=== PATIENT | female | born 1935 | race Caucasian/White ===

== ENCOUNTER 2016-09-21 13:30 | Inpatient (IN) | payer MEDICARE, OTHER ==
[~2016-09-21] VITALS: Ht 160 cm; Wt 80.3 kg
[~2016-09-21 13:30] MED LIST: GLU500 PO; NORCO 7.5/3257.5 MG PO
--- NOTE | 2016-09-21 13:51 | NUR ---
PT BIB FAMILY C/C N/V/D PLACED ON MONITOR DR QUIGLEY AT BEDSIDE TO [facility]
--- NOTE | 2016-09-21 13:55 | NUR ---
RT AT BEDSIDE FOR ABG
--- NOTE | 2016-09-21 14:25 | NUR ---
PLEASE ENTER FULL NAMES OF RETAIL OFFICE ASSOCIATE/RN Patient data collected by (RETAIL OFFICE ASSOCIATE): Alexey DEVINE Assessment reviewed and completed by (RN): Clark RICKETTS
[2016-09-21 14:37] LABS: BASOPHIL % 0.1 % (0-2); PLATELET COUNT 275 x10^3mcL (130-400)
--- NOTE | 2016-09-21 14:39 | NUR ---
DR QUIGLEY MADE AWARE THAT PT HAS PAIN OF 7/10
--- NOTE | 2016-09-21 14:39 | NUR ---
PT MEDICATED PER MD ORDERS FOR PAIN.
[2016-09-21 14:44] LABS: CALCIUM 8.1 mg/dL (8.5-10.1); CARBON DIOXIDE 27.5 mmol/L (21-32); CHLORIDE SERUM 105 mmol/L (98-107); CREATININE SERUM 0.8 mg/dL (0.6-1.0); GLUCOSE SERUM 206 mg/dL (74-106); POTASSIUM SERUM 3.9 mmol/L (3.5-5.1); SODIUM SERUM 142 mmol/L (136-145)
[2016-09-21 14:57] LABS: ALBUMIN 3.4 g/dL (3.4-5.0); ALKALINE PHOSPHATASE 75 U/L (46-116); ALT/SGPT 16 U/L (14-59); AST/SGOT 14 U/L (15-37); BILIRUBIN TOTAL 0.6 mg/dL (0.20-1.00); C REACTIVE PROTEIN 2.3 mg/dL (<=0.9); TOTAL PROTEIN, SERUM 7.4 g/dL (6.4-8.2)
[2016-09-21 15:03] LABS: RED CELL DISTRIBUTION WIDTH 14.9 % (11.5-14.5)
[2016-09-21 15:16] LABS: CK-MB < 0.5 ng/mL (0-3.6); CREATINE KINASE 22 U/L (26-192)
[2016-09-21 15:19] LABS: T3 TOTAL 0.85 ng/mL
[2016-09-21 15:54] LABS: FREE T4 1.12 ng/dL (0.76-1.46)
[2016-09-21 15:56] LABS: T4(THYROXINE) 8.8 ug/dL (4.7-13.3)
[2016-09-21 16:24] LABS: ERYTHROCYTE SED RATE 47 mm/hr (0-30)
[2016-09-21] MEDS ORDERED: METFORMIN ER500 M1 PO (17:39)
[2016-09-21] MEDS ORDERED: GABAPENTIN600 M1 PO (17:39)
--- NOTE | 2016-09-21 17:54 | NUR ---
PT MEDICATED PER MD ORDERS FOR PAIN 0.5MG DILAUDID AND 4MG ZOFRAN
--- NOTE | 2016-09-21 18:17 | NUR ---
PT ADMIT TO TELE ROOM 206A GAVE REPORT TO CAMILA
[2016-09-21 19:06] LABS: UA SPECIFIC GRAVITY 1.015 (1.005-1.035); microscopic required? YES; urine erythrocyte 3+ (NEGATIVE)
[2016-09-21 19:07] LABS: MAGNESIUM 1.6 mg/dL (1.8-2.4); PHOSPHOROUS 2.6 mg/dL (2.5-4.9)
--- NOTE | 2016-09-21 19:30 | NUR ---
REC'D PT FROM [facility] VIA [facility]. PT IS AAOX4. TELE #30 SR WITH OCC. PVC'S. PT C/O 5 HEADACHE. LUNG SOUNDS CLEAR. NO SOB NOTED. PT ON 2L O2 VIA NC. BS ACTIVE X4. PT DENIES ABD PAIN OR N/V AT THIS TIME. PT REPORTS HAVING DIARRHEA. GENERALIZED WEAKNESS NOTED. IV NOTED TO RAC. INTACT AND PATENT. ORIENTED PT TO CALL LIGHT. BED IN LOWEST POSITION. WILL ENDORSE TO PRIMARY NURSE.
[2016-09-21 19:39] VITALS: BP 144/89
--- NOTE | 2016-09-21 20:23 | NUR ---
PT C/O HEADACHE AND ABDL PAIN 09/09. NORCO 7.5/325 MG PO GIVEN.
--- NOTE | 2016-09-21 21:23 | NUR ---
PT APPEARS TO BE SLEEPING COMFORTABLY AFTER TAKING NORCO. NO FURTHER C/O HEADACHE AND ABDL PAIN.
[2016-09-21 21:30] VITALS: BP 137/66
--- NOTE | 2016-09-21 23:27 | NUR ---
IVF RATE CHANGED TO 120 CC/HR ORDERED.
--- NOTE | 2016-09-22 04:45 | NUR ---
PT C/O HEADACHE AND ABDL PAIN /.ALSO C/O NAUSEA. NO VOMITING NOTED AT THIS TIME. PT MEDICATED W/ ZOFRAN 4 MG IV FOR NAUSEA AND NORCO 7.5/325 MG PO FOR PAIN.
--- NOTE | 2016-09-22 05:21 | NUR ---
PT SLEPT FAIRLY. SHE WAS MEDICATED FOR HEADACHE AND ABDL PAIN X2 W/ NORCO GIVING HER GOOD RELIEF. PT ALSO WAS MEDICATED FOR NAUSEA X1. NO EPISODE OF VOMITING NOTED. PT HAD SMALL WATERY BM X1. ALL NEEDS ATTENDED TO.
[2016-09-22 06:41] LABS: BASOPHIL % 0.3 % (0-2); PLATELET COUNT 211 x10^3mcL (130-400)
[2016-09-22 06:47] LABS: CALCIUM 7.2 mg/dL (8.5-10.1); CARBON DIOXIDE 23.3 mmol/L (21-32); CHLORIDE SERUM 110 mmol/L (98-107); CREATININE SERUM 0.7 mg/dL (0.6-1.0); GLUCOSE SERUM 169 mg/dL (74-106); POTASSIUM SERUM 3.7 mmol/L (3.5-5.1); SODIUM SERUM 143 mmol/L (136-145)
[2016-09-22 06:56] LABS: RED CELL DISTRIBUTION WIDTH 14.9 % (11.5-14.5)
[2016-09-22 06:57] VITALS: BP 100/49
--- NOTE | 2016-09-22 07:20 | NUR ---
RECEIVED PT. IN BED A/A/O X3. NO SOB, NO N/V NOTED. DENIES ANY PAIN AT THIS TIME. NS RUNNING AT 120 CC/HR. VIA IV H/L AT R AC. SCD TO BLE MAINTAINED. BED IN LOW POS., CALL LIGHT WITHIN REACH. SIDE RAILS UP X3.
[2016-09-22 08:02] LABS: CHOLESTEROL/HDL RATIO 4.6
[2016-09-22 09:30] VITALS: BP 97/65
--- NOTE | 2016-09-22 09:36 | NUR ---
DR. CALI, THE RESIDENTS, CHARGE NURSE, AND ATTENDING NURSE AT BEDSIDE. CAREPLAN DISCUSSED WITH PT. ALL QUESTIONS ANSWERED.
[2016-09-22 12:40] VITALS: BP 132/59
--- NOTE | 2016-09-22 15:47 | NUR ---
IV H/L RESTARTED AT L FA WITH GAUGE #20. OLD IV H/L TO R AC REMOVED DUE TO CONSTANT POSITIONAL BEEPING OF IV MACHINE.
[2016-09-22 17:40] VITALS: BP 130/43
--- NOTE | 2016-09-22 18:47 | NUR ---
REMAINS IN STABLE CONDITION AT THIS TIME. NO ACUTE DISTRESS NOTED.
--- NOTE | 2016-09-22 19:30 | NUR ---
RECEIVED PT IN BED RESTING QUIETLY. SHE IS ALERT,ORIENTED X4. LUNGS CTA. ON O2 AT 2L VIA N/C. NO SOB NOTED. BOWEL SOUNDS ACTIVE. SHE HAS NO C/O PAIN AT THIS TIME. NO N/V. DENIES PAIN OR BURNING ON URINATION. W/ IVF NS AT 120 CC/HR VIA LTFA. CALL LIGHT W/IN REACH.
[2016-09-22 21:11] VITALS: BP 122/56
--- NOTE | 2016-09-23 05:10 | NUR ---
PT REMAINS ASLEEP. SHE WAS MEDICATED FOR PAIN X1. SHE HAD NO EPISODE OF N/V. NO BM NOTED THIS SHIFT. PT ON NPO EXCEPT MEDS ORDERED FOR CT OF ABDOMEN/PELVIS W/ IV CONTRAST.
[2016-09-23 05:35] VITALS: BP 127/57
--- NOTE | 2016-09-23 05:55 | NUR ---
PT C/O FEELING NAUSEATED. NO VOMITING NOTED. ZOFRAN 4 MG IV GIVEN.
--- NOTE | 2016-09-23 06:30 | NUR ---
PT RESTING MORE COMFORTABLY. NO FURTHER C/O NAUSEA.
[2016-09-23 07:29] LABS: CALCIUM 6.9 mg/dL (8.5-10.1); CHLORIDE SERUM 109 mmol/L (98-107); CREATININE SERUM 0.8 mg/dL (0.6-1.0); GLUCOSE SERUM 118 mg/dL (74-106); MAGNESIUM 1.9 mg/dL (1.8-2.4); POTASSIUM SERUM 4.1 mmol/L (3.5-5.1); SODIUM SERUM 141 mmol/L (136-145)
[2016-09-23 07:35] LABS: BASOPHIL % 0.7 % (0-2); PLATELET COUNT 187 x10^3mcL (130-400)
[2016-09-23 07:46] LABS: RED CELL DISTRIBUTION WIDTH 15.4 % (11.5-14.5)
--- NOTE | 2016-09-23 07:52 | NUR ---
ALERT AND ORIENTED. TELE #30 NSR WITH PVC'S, HR 90. PULSES PRESENT, NO EDEMA NOTED. LUNG SOUNDS CLEAR ON RA. BOWEL SOUNDS ACTIVE. NO DIFFICULTY URINATING. AMB TO BATHROOM WITH MINIMAL ASSISTANCE. SKIN DRY AND INTACT. REPORTED BACK PAIN 09/09. NO N/V REPORTED. IV SITE CLEAR AND INTACT, NS @ 120.
[2016-09-23 08:58] VITALS: BP 131/65
--- NOTE | 2016-09-23 09:12 | NUR ---
TEMPERATURE OF 100.4, TYLENOL GIVEN. O2 SAT 89, PUT BACK ON O2, 2L NC. PAIN LEVEL, 5/10, REPORTED PAIN GETTING BETTER AFTER RECEIVING NORCO.
--- NOTE | 2016-09-23 09:36 | NUR ---
GRANDDAUGHTER BEDSIDE. REVIEWED CT IV CONTRAST QUESTIONAIRE. DOES NOT WANT TO AGREE TO THIS TEST AT THIS TIME. GRANDDAUGHTER AND PATIENT TO DISCUSS AND NURSE WILL RETURN LATER.
--- NOTE | 2016-09-23 09:45 | NUR ---
PATIENT SPOKE WITH DAUGHTER ON PHONE, HAS DECIDED TO HAVE CT WITH CONTRAST. WITNESSED SIGNATURE ON CONSENT. GRANDDAUGHTER CONTINUES BEDSIDE.
--- NOTE | 2016-09-23 10:39 | NUR ---
GIVEN MEDICATION FOR NAUSEA. SL, TAKEN DOWN TO CT. REPORTS NO PAIN AT THIS TIME
--- NOTE | 2016-09-23 11:19 | NUR ---
RECEIVED BACK FROM CT. DENIES N/V AT THIS TIME. REPORTS NO PAIN AT THIS TIME. IVF RUNNING NS @ 120.
--- NOTE | 2016-09-23 12:00 | NUR ---
SPOKE WITH DR CAPONE FOR DIET. WAS NPO FOR CT SCAN.
[2016-09-23 13:33] VITALS: BP 118/46
--- NOTE | 2016-09-23 13:33 | NUR ---
ATE LUNCH ABOUT 50%. GRANDDAUGHTER BEDSIDE. NO DISTRESS NOTED.
--- NOTE | 2016-09-23 13:34 | NUR ---
O2 SAT AT 100% ON 2L. REDUCED TO 1L.
--- NOTE | 2016-09-23 14:00 | NUR ---
TOLERATED MEDICATION WELL. REPORTS NO NAUSEA AT THIS TIME. NO DISTRESS NOTED.
[2016-09-23 15:20] VITALS: BP 127/52
--- NOTE | 2016-09-23 15:23 | NUR ---
SPOKE WITH DR CAPONE, MADE AWARE CT RESULTED IN COMPUTER AND GRANDDAUGHTER BEDSIDE WANTING RESULTS.
[2016-09-23] MEDS ORDERED: MAC100 PO (15:41)
--- NOTE | 2016-09-23 16:59 | NUR ---
SLEEPING WITH FAMILY AT BEDSIDE. NO DISTRESS NOTED, BREATHING UNLABORED AND EVEN.
--- NOTE | 2016-09-23 17:33 | NUR ---
IN EARLIER TO TALK WITH PATIENT AND GRANDDAUGHTER. PLAN FOR DC HOME TODAY.
--- NOTE | 2016-09-23 17:51 | NUR ---
SITTING BED SIDE WITH FAMILY MEMBER. NO SOB NOTED
--- NOTE | 2016-09-23 18:06 | NUR ---
OTHER NURSE IN ROOM, NOTICE PATIENT TURNING BLUE FROM CHOKING ON JELLO. PERFORMED BACK BLOWS, JELLO REMOVED. ABLE TO BREATH. HR 85, RR 22, 185/99 (127) O2 SAT 97%. GRAND DAUGHTER REPORTS HAPPENS FREQUENTLY AT HOME, TRIES TO TALK WHILE EATING.
--- NOTE | 2016-09-23 18:56 | NUR ---
DISCHARGE TEACHING COMPLETE, PATIENT VERBALLY ACKNOWLEDGED UNDERSTANDING OF INSTRUCTIONS. D/C IV, CATHETER INTACT. WHEELED DOWN TO LOBBY.
--- NOTE | 2016-09-23 19:01 | NUR ---
OFF FLOOR VIA WHEELCHAIR WITH RN. ALL BELONGINGS WITH GRANDDAUGHTER.
== END 2016-09-23 19:00 | disposition home or self-care (01) | DRG 391 ==
LOC: ED 13:30 → DU 17:35
PROVIDERS: Specialist; ADMIT Family Medicine
DX: K57.30 Diverticulosis of large intestine without perforation or abscess without bleeding (principal); N17.0 Acute kidney failure with tubular necrosis; N13.30 Unspecified hydronephrosis; N39.0 Urinary tract infection, site not specified; E11.51 Type 2 diabetes mellitus with diabetic peripheral angiopathy without gangrene; E11.65 Type 2 diabetes mellitus with hyperglycemia; E86.0 Dehydration; E83.51 Hypocalcemia; N28.1 Cyst of kidney, acquired; D18.03 Hemangioma of intra-abdominal structures; D64.9 Anemia, unspecified; E66.9 Obesity, unspecified; Z68.31 Body mass index [BMI] 31.0-31.9, adult
CPT/HCPCS: 36600; 82962; 83880; 84439; J0696; J1170; J2405; J3010; J3475; J7030; Q0092; Q9967